=== PATIENT | female | born 1980 | race Caucasian/White ===

== ENCOUNTER 2019-03-24 15:19 | Inpatient (IN) | payer OTHER ==
[~2019-03-24] VITALS: Ht 162.6 cm; Wt 52.2 kg
[~2019-03-24 15:19] MED LIST: CIPRO500 MG PO; CLEOCIN HCL300 MG PO; COL100 PO; ESOMEPRAZOLE PO; FLA500 PO; GOLYTELY1 PDR PO; LAC PO; LACTULOSE10 GM/152 PO; LEVAQUIN750 MG PO; MIRALAX17 GM/Dose PO; NOR10T PO; PAN PO; PULMOZYME2.5 MG/2.5 IH; SPORANOX100 MG PO; TOBI300 MG/5 M IH; ZITHROMAX250 MG PO; [UNRECOGNIZED DRUG - OTHER] PO
[2019-03-24 16:58] LABS: BASOPHIL % 1.3 % (0-2); PLATELET COUNT 365 x10^3mcL (130-400); RED CELL DISTRIBUTION WIDTH 15.1 % (11.5-14.5)
[2019-03-24 17:07] LABS: CALCIUM 9.6 mg/dL (8.5-10.1); CARBON DIOXIDE 23.9 mmol/L (21-32); CHLORIDE SERUM 98 mmol/L (98-107); CREATININE SERUM 0.9 mg/dL (0.6-1.0); GFR1 > 60 mL/min; GLUCOSE SERUM 103 mg/dL (74-106); POTASSIUM SERUM 3.5 mmol/L (3.5-5.1); SODIUM SERUM 131 mmol/L (136-145)
[2019-03-24 17:12] LABS: ALKALINE PHOSPHATASE 239 U/L (46-116); ALT/SGPT 33 U/L (14-59); AST/SGOT 20 U/L (15-37); BILIRUBIN TOTAL 0.38 mg/dL (0.20-1.00); LIPASE 14 IU/L (73-393)
[2019-03-24 17:14] LABS: ALBUMIN 3.1 g/dL (3.4-5.0)
[2019-03-24 18:40] LABS: MAGNESIUM 1.7 mg/dL (1.8-2.4); PHOSPHOROUS 3.3 mg/dL (2.5-4.9)
[2019-03-24 19:57] VITALS: BP 99/63
[2019-03-25 05:42] VITALS: BP 94/65
[2019-03-25 08:37] VITALS: Ht 162.6 cm; Wt 52.2 kg
[2019-03-25 09:33] LABS: BASOPHIL % 0.2 % (0-2); PLATELET COUNT 283 x10^3mcL (130-400)
[2019-03-25 09:48] VITALS: BP 100/52
[2019-03-25 10:04] LABS: RED CELL DISTRIBUTION WIDTH 15.5 % (11.5-14.5)
[2019-03-25 10:28] LABS: CALCIUM 8.6 mg/dL (8.5-10.1); CARBON DIOXIDE 21.9 mmol/L (21-32); CHLORIDE SERUM 105 mmol/L (98-107); CREATININE SERUM 0.9 mg/dL (0.6-1.0); GFR1 > 60 mL/min; GLUCOSE SERUM 304 mg/dL (74-106); POTASSIUM SERUM 4.3 mmol/L (3.5-5.1); SODIUM SERUM 138 mmol/L (136-145)
[2019-03-25 13:36] VITALS: BP 97/47
[2019-03-25 16:20] VITALS: BP 97/47
[2019-03-25] MEDS ORDERED: TOR15I IV (17:27)
[2019-03-25] MEDS ORDERED: XOP0.63 HHN ×2 (17:27)
[2019-03-25] MEDS ORDERED: BG FS (17:28)
[2019-03-25] MEDS ORDERED: LAC30L PO (17:28)
[2019-03-25] MEDS ORDERED: TYL325 PO (17:28)
[2019-03-25] MEDS ORDERED: MOR2I IV (17:28)
[2019-03-25] MEDS ORDERED: MUCINEX600 MG PO (17:29)
[2019-03-25] MEDS ORDERED: PAN PO (17:29)
[2019-03-25] MEDS ORDERED: MAG PO (17:29)
[2019-03-25] MEDS ORDERED: PROTONIX40 MG/Pac1 PO (17:30)
[2019-03-25] MEDS ORDERED: LAC PO (17:30)
[2019-03-25] MEDS ORDERED: ZOFI IV (17:30)
[2019-03-25] MEDS ORDERED: SOL40I IV (17:30)
[2019-03-25] MEDS ORDERED: THERA TABLET400 MCG PO (17:31)
[2019-03-25] MEDS ORDERED: ITRACONAZOLE PO (17:31)
[2019-03-25] MEDS ORDERED: HUMULIN R100 U/1 M1 SC (17:31)
[2019-03-25 18:19] VITALS: BP 110/61
[2019-03-25 22:35] VITALS: BP 101/63
[2019-03-26 05:22] LABS: UA SPECIFIC GRAVITY 1.025 (1.005-1.035)
[2019-03-26 05:23] LABS: microscopic required? YES
[2019-03-26 05:24] LABS: urine erythrocyte NEGATIVE (NEGATIVE)
[2019-03-26 05:30] VITALS: BP 107/70
[2019-03-26 05:36] LABS: AMPHETAMINE QUAL UR NONE DETECTED (See below)
[2019-03-26 06:52] LABS: PLATELET COUNT 324 x10^3mcL (130-400)
[2019-03-26 07:03] LABS: CARBON DIOXIDE 24.8 mmol/L (21-32); CHLORIDE SERUM 105 mmol/L (98-107); GFR1 > 60 mL/min; GLUCOSE SERUM 295 mg/dL (74-106); MAGNESIUM 2.3 mg/dL (1.8-2.4); PHOSPHOROUS 3.5 mg/dL (2.5-4.9); POTASSIUM SERUM 5.1 mmol/L (3.5-5.1); SODIUM SERUM 137 mmol/L (136-145)
[2019-03-26 07:42] LABS: RED CELL DISTRIBUTION WIDTH 15.9 % (11.5-14.5)
[2019-03-26 08:30] VITALS: BP 101/45
[2019-03-26 09:28] LABS: BAND NEUTROPHIL 10 % (0-10); BASOPHIL 0 % (0-2); MONOCYTE 2 % (0-7); SEGMENTED NEUTROPHILS 81 % (37-75)
[2019-03-26 09:29] LABS: PLATELET MORPHOLOGY PLATELETS NORMAL; rbc morphology (normal/abnorm) NORMAL (NORMAL)
[2019-03-26 12:24] VITALS: BP 107/68
[2019-03-26 16:14] VITALS: BP 99/61
[2019-03-26 21:17] VITALS: BP 119/64
[2019-03-27 05:05] VITALS: BP 133/73
[2019-03-27 06:36] LABS: PLATELET COUNT 308 x10^3mcL (130-400)
[2019-03-27 06:37] LABS: BASOPHIL % 0 % (0-2); RED CELL DISTRIBUTION WIDTH 15.4 % (11.5-14.5)
[2019-03-27 07:02] LABS: CALCIUM 8.7 mg/dL (8.5-10.1); CHLORIDE SERUM 101 mmol/L (98-107); GFR1 > 60 mL/min; GLUCOSE SERUM 357 mg/dL (74-106); PHOSPHOROUS 3.7 mg/dL (2.5-4.9); POTASSIUM SERUM 4.2 mmol/L (3.5-5.1); SODIUM SERUM 137 mmol/L (136-145)
[2019-03-27 08:07] VITALS: BP 143/84
[2019-03-27 12:36] VITALS: BP 123/82
[2019-03-27 15:47] VITALS: BP 128/86
[2019-03-27 20:59] VITALS: BP 124/79
[2019-03-28 05:53] VITALS: BP 130/85
[2019-03-28 06:09] LABS: PLATELET COUNT 340 x10^3mcL (130-400)
[2019-03-28 06:34] LABS: RED CELL DISTRIBUTION WIDTH 15.5 % (11.5-14.5)
[2019-03-28 06:39] LABS: CALCIUM 8.9 mg/dL (8.5-10.1); CARBON DIOXIDE 28.1 mmol/L (21-32); CREATININE SERUM 1.1 mg/dL (0.6-1.0); MAGNESIUM 1.8 mg/dL (1.8-2.4); POTASSIUM SERUM 4.8 mmol/L (3.5-5.1)
[2019-03-28 07:53] VITALS: BP 148/89
[2019-03-28 08:44] LABS: BAND NEUTROPHIL 4 % (0-10); MONOCYTE 3 % (0-7); PLATELET MORPHOLOGY PLATELETS NORMAL; SEGMENTED NEUTROPHILS 82 % (37-75); rbc morphology (normal/abnorm) NORMAL (NORMAL)
[2019-03-28 13:11] VITALS: BP 121/85
[2019-03-28 15:54] VITALS: BP 121/85
[2019-03-28 16:00] VITALS: BP 141/86
[2019-03-28 21:39] VITALS: BP 125/80
[2019-03-29 05:39] VITALS: BP 125/71
[2019-03-29 06:46] LABS: PLATELET COUNT 360 x10^3mcL (130-400)
[2019-03-29 06:48] LABS: RED CELL DISTRIBUTION WIDTH 15.6 % (11.5-14.5)
[2019-03-29 07:04] LABS: CALCIUM 8.6 mg/dL (8.5-10.1); CARBON DIOXIDE 28.4 mmol/L (21-32); CREATININE SERUM 1.1 mg/dL (0.6-1.0); MAGNESIUM 1.7 mg/dL (1.8-2.4); PHOSPHOROUS 3.6 mg/dL (2.5-4.9); POTASSIUM SERUM 4.5 mmol/L (3.5-5.1)
[2019-03-29 09:29] VITALS: BP 125/85
[2019-03-29 10:39] LABS: BAND NEUTROPHIL 6 % (0-10); BASOPHIL 0 % (0-2); MONOCYTE 3 % (0-7); SEGMENTED NEUTROPHILS 87 % (37-75)
[2019-03-29 10:41] LABS: rbc morphology (normal/abnorm) ABNORMAL (NORMAL)
[2019-03-29 10:42] LABS: PLATELET MORPHOLOGY LARGE PLATELET SEEN; tear drop cell (dacryocyte) 1+
[2019-03-29 12:43] VITALS: BP 118/77
[2019-03-29] MEDS ORDERED: ZYVOX600 MG PO (13:37)
[2019-03-29] MEDS ORDERED: LAC PO (14:38)
[2019-03-29] MEDS ORDERED: BG FS (14:38)
[2019-03-29] MEDS ORDERED: HUMULIN R100 U/1 M1 SC (14:38)
[2019-03-29] MEDS ORDERED: BACO TOP (14:38)
[2019-03-29 18:06] VITALS: BP 139/91
[2019-03-29 18:09] VITALS: BP 139/91
== END 2019-03-29 18:58 | disposition home or self-care (01) | DRG 177 ==
LOC: ED 15:19 → DU 17:46
PROVIDERS: Emergency Medicine; ADMIT Internal Medicine
DX: J15.212 Pneumonia due to Methicillin resistant Staphylococcus aureus (principal); A41.9 Sepsis, unspecified organism; M33.20 Polymyositis, organ involvement unspecified; E84.9 Cystic fibrosis, unspecified; Z68.1 Body mass index [BMI] 19.9 or less, adult; E44.0 Moderate protein-calorie malnutrition; E83.42 Hypomagnesemia; R74.0 Nonspecific elevation of levels of transaminase and lactic acid dehydrogenase [LDH]; E11.9 Type 2 diabetes mellitus without complications; F11.10 Opioid abuse, uncomplicated; Z22.322 Carrier or suspected carrier of Methicillin resistant Staphylococcus aureus
CPT/HCPCS: 82962; 83880; 87804; 94150; J1200; J1642; J1885; J2020; J2270; J2405; J2543; J2920; J2930; J3010; J3490; J7030; J7040; J7050; J7620; Q0092

== ENCOUNTER 2019-10-17 05:25 | Inpatient (IN) | payer OTHER ==
[~2019-10-17] VITALS: Ht 162.6 cm; Wt 52.2 kg
[~2019-10-17 05:25] MED LIST changes: +BACO TOP; +BG FS; +HUMULIN R100 U/1 M1 SC; +ITRACONAZOLE PO; +LAC30L PO; +MAG PO; +MOR2I IV; +MUCINEX600 MG PO; +PROTONIX40 MG/Pac1 PO; +SOL40I IV; +THERA TABLET400 MCG PO; +TOR15I IV; +TYL325 PO; +XOP0.63 HHN; +ZOFI IV; +ZYVOX600 MG PO
--- NOTE | 2019-10-17 05:30 | NUR ---
EKG IN PROGRESS IN TRIAGE
--- NOTE | 2019-10-17 05:41 | NUR ---
PT SENT TO THE LOBBY TO WAIT, NO DISTRESS NOTED OR SOB A THIS TIME. RESP E/U.
--- NOTE | 2019-10-17 08:00 | NUR ---
AGENCY DOCUMENTATION DONE BY Staff Name/Title - : NOBLE JACQUES JR/JUSTA [employer] User ID - : [id number] Agency Name - : [employer] Time Documented - From - : [id number] To - : 1929
[2019-10-17 08:08] LABS: BASOPHIL % 0.5 % (0-2); PLATELET COUNT 308 x10^3mcL (130-400)
[2019-10-17 08:09] LABS: RED CELL DISTRIBUTION WIDTH 15.4 % (11.5-14.5)
[2019-10-17 08:21] LABS: CALCIUM 8.5 mg/dL (8.5-10.1); CARBON DIOXIDE 26.9 mmol/L (21-32); CHLORIDE SERUM 105 mmol/L (98-107); CREATININE SERUM 0.8 mg/dL (0.6-1.0); GFR1 > 60 mL/min; GLUCOSE SERUM 86 mg/dL (74-106); POTASSIUM SERUM 4.2 mmol/L (3.5-5.1); SODIUM SERUM 140 mmol/L (136-145)
[2019-10-17 08:26] LABS: ALBUMIN 2.8 g/dL (3.4-5.0); ALKALINE PHOSPHATASE 261 U/L (46-116); ALT/SGPT 40 U/L (14-59); AST/SGOT 41 U/L (15-37); BILIRUBIN TOTAL 0.2 mg/dL (0.20-1.00)
--- NOTE | 2019-10-17 08:26 | NUR ---
ASSUMED PATIENT CARE, NURSING ASSESSMENT COMPLETED. SEEN AND EVALUATED BY JOSESITO BEAR COMPLETED.
[2019-10-17 09:22] LABS: CHOLESTEROL/HDL RATIO 3.8; MAGNESIUM 1.9 mg/dL (1.8-2.4); PHOSPHOROUS 3.2 mg/dL (2.5-4.9)
[2019-10-17 09:41] LABS: T3 TOTAL 0.94 ng/mL
[2019-10-17 09:45] LABS: FREE T4 1.03 ng/dL (0.76-1.46); FREE THYROXINE INDEX 2.5 ug/dL (1.4-4.5); T4(THYROXINE) 7.7 ug/dL (4.7-13.3)
--- NOTE | 2019-10-17 09:45 | NUR ---
DISPO AND MEDICAL DECISION MAKING INPATIENT ADMISSION FOR FURTHER MANAGEMENT. PATIENT CARE REPORT ENDORSED TO STEPHEN, PATIENT UPDATED ACCORDINGLY, VS WNL, NO DISTRESS.
--- NOTE | 2019-10-17 10:00 | NUR ---
RECIEVED PT FROM ER [facility]IA [employer]. PT A/O X4 WITH NO C/O DIZZINESS. ADMITTING DIAGNOSIS PNA. LUNGS HAVE WHEEZING BILATERALLY, NO SOB NOTED. 2 LPM O2 VIA NC. TELE# 35 CONNECTED TO PT , DENIES CP OR PRESSURE. NSR AT THIS TIME. PULSES PLPABLE AND NO EDEMA NOTED. BOWEL SOUNDS ACTIVEX4, NO DISTENTION NOTED. PT AMBULATORY WITH ASSISTANCE. SKIN CDI. LEFT CHEST WALL PORTACATH CDI AND PATENT. SAFETY PRECAUTIONS IN PLACE, CALL LIGHT WITHIN REACH, WILL MONITOR.
[2019-10-17 10:06] VITALS: BP 101/61
--- NOTE | 2019-10-17 11:48 | NUR ---
MORPHINE GIVEN PER EMAR FOR C/O PAIN, WILL REASSESS.
[2019-10-17 11:57] VITALS: Ht 162.6 cm; Wt 52.2 kg
[2019-10-17 13:30] VITALS: BP 101/70
[2019-10-17 13:55] VITALS: BP 101/70
--- NOTE | 2019-10-17 15:03 | NUR ---
MORPHINE GIVEN PER EMAR FOR C/O 04/19 LEAVITT AND CP, WILL REASSESS.
[2019-10-17 16:49] VITALS: BP 106/67
--- NOTE | 2019-10-17 18:36 | NUR ---
PT STABLE WITH NO C/O DISTRESS OR PAIN. TOLERATED ALL CARES WELL. VS WNL. A/OX4. TELE#35 CONNECTED TO PT, DENIES CP OR PRESSURE. PT ON 2 LPM O2 NC WITH NON-PRODUCTIVE COUGH. NS RUNNING AT 100ML/HR IN LEFT CHEST WALL PORTACATH, CDI AND PATENT. STRICT INSTRUCTIONS FROM PHARMACY TO GIVE BENADRYL 30 MIN BEFORE ZOSYN D/T ALLERGIES. CAHARGE AWARE AND WILL ENDORSE TO ONCOMING NURSE. SAFETY PRECAUTIONS IN PLACE, CALL LIGHT WITHIN REACH, WILL ENDORSSE ALL CARE, TX, AND ISTRUCTIONS TO NIGHT NURSE.
--- NOTE | 2019-10-17 20:00 | NUR ---
PT A/A/O X4. DENIES DIZZINESS AND HEADACHE. BREATH SOUNDS CLEAR. BREATHING EVEN AND UNLABORED ON 2L NC. DRY/NON PRODUCTIVE COUGH NOTED. NO C/O CHEST PAIN AND PRESSURE THUS FAR. BOWEL SOUNDS ACTIVE. NO C/O N/V AND ABD PAIN. PT WITH VINCENT CATH NOTED ON THE LEFT SIDE OF THE CHEST. MADE PT COMFORTABLE. PLACED CALL LIGHT WITH IN REACH. WILL CONTINUE TO MONITOR.
--- NOTE | 2019-10-17 20:22 | NUR ---
PT C/O CHEST PAIN. GAVE PT MORPHINE IVP. PT TOLERATED IT WELL. WILL CONTINUE TO MONITOR.
--- NOTE | 2019-10-17 20:39 | NUR ---
PT WITH TEMP OF 103.3. GAVE PT TYLENOL PO. PT TOLERATED IT WELL. COOLING MEASURES IMPLEMENTED. WILL CONTINUE TO MONITOR.
[2019-10-17 21:15] VITALS: BP 107/53
--- NOTE | 2019-10-17 21:37 | NUR ---
PATIENTS TEMP 102.4, AFTER TYLENOL AND COOLING MEASURES. DR. LOPEZ NOTIFIED. COOLING MEASURES CONTINUED TO BE IMPLEMENTED. WILL CONTINUE TO MONITOR.
--- NOTE | 2019-10-17 23:51 | NUR ---
PT C/O PAIN. GAVE PT MORPHINE IVP. PT TOLERATED IT WELL. WILL CONTIUE TO MONITOR.
[2019-10-18] VITALS (7 sets, daily range): BP systolic 99–110; BP diastolic 53–69
--- NOTE | 2019-10-18 00:31 | NUR ---
PT TEMP 97.7 ORALLY. WILL CONTINUE TO MONITOR.
--- NOTE | 2019-10-18 00:58 | NUR ---
PT RESTING WITH EYES CLOSED. NO DISTRESS AND DISCOMFORT NOTED. WILL CONTINUE TO MONITOR.
--- NOTE | 2019-10-18 04:56 | NUR ---
PT C/O PAIN. GAVE PT MORPHINE IVP. PT TOLERATED IT WELL. WILL CONTINUE TO MONITOR.
--- NOTE | 2019-10-18 07:30 | NUR ---
PT ENDORSE TO ME THIS MORNING, LAYING IN BED RESTING, AA/O X4, BREATHING EVEN AND UNLABORED ON RA, NO ACUTE RESP DISTRESS OR SOB NOTED. TELE 35 NSR NOTED, HR 76, DENIES ANY CP OR PRESSURE. VOIDS FREELY. AMB. IV TO THE L VINCENT CATH INTACT AND PATENT/ INFUSING AT 100ML/HR, NO REDNESS OR SWELLING NOTED. CALL LIGHT IN REACH, BED IN LOW POSITION. WILL CONTINUE TO MONITOR.
[2019-10-18 07:53] LABS: PLATELET COUNT 227 x10^3mcL (130-400)
[2019-10-18 07:59] LABS: BASOPHIL % 0 % (0-2); RED CELL DISTRIBUTION WIDTH 15.4 % (11.5-14.5)
[2019-10-18 08:18] LABS: CALCIUM 7.9 mg/dL (8.5-10.1); CARBON DIOXIDE 22.1 mmol/L (21-32); CHLORIDE SERUM 107 mmol/L (98-107); GFR1 > 60 mL/min; GLUCOSE SERUM 234 mg/dL (74-106); POTASSIUM SERUM 4.3 mmol/L (3.5-5.1); SODIUM SERUM 139 mmol/L (136-145)
[2019-10-18 09:15] LABS: UA SPECIFIC GRAVITY <=1.005 (1.005-1.035); microscopic required? YES; urine erythrocyte TRACE (NEGATIVE)
--- NOTE | 2019-10-18 09:51 | NUR ---
PT C/O OF BACK PAIN 05/19, BP TOO LOW FOR NORCO OR MORPHINE IV . WILL MEDICATE PER EMAR . WILL CONTINUE TO MONITOR.
--- NOTE | 2019-10-18 10:00 | NUR ---
CALL PHARMACY, PER CEE CULLEN TO HANG ZOSYN OVER ONE HR. WILL CONTINUE TO MONITOR.
--- NOTE | 2019-10-18 10:45 | NUR ---
REQUESTED TO PUT ORDER IN OF 3% HYPERTONIC SALINE FOR PATIENT TO HAVE WITH EACH Q6 HHN TREATMENT TO INDUCE COUGH AND MOBILIZE SECRETIONS. SPOKE WITH AND ADVISED THAT I DO NOT HAVE ACCESS TO ORDER THE SALINE. STATED TO ORDER THE SALINE UNDER 'REQUEST FOR SERVICE' AND NOTATE THE FILE SO PHARMACY WILL PUT ORDER THROUGH.
--- NOTE | 2019-10-18 11:09 | NUR ---
PT C/O OF BACK PAIN 05/19, MEDICATED PER EMAR.
--- NOTE | 2019-10-18 14:25 | NUR ---
PT TOLERATED 100 % OF LUNCH. DENIES ANY N/V AT THIS TIME. WILL CONTINUE TO MONITOR.
--- NOTE | 2019-10-18 14:56 | NUR ---
PT C/O OF BILAT BACK PAIN 04/19, MEDICATED PER EMAR.
--- NOTE | 2019-10-18 18:16 | NUR ---
NO ACUTE CHANGES AT THIS TIME, NO ACUTE RESP DISTRESS OR SOB NOTED. L CHEST PORT CATH INTACT AND PATENT INFUSING NS AT 100ML/HR, NO REDNESS OR SWELLING. WILL ENDORSE TO INCOMING RN.
--- NOTE | 2019-10-18 18:43 | NUR ---
PT C/O BILAT BACK PAIN, MEDICATED PER EMAR. ALSO CALLED NUCLEAR MEDICINE SPECIALIST DUC FOR ONE TIME ORDER OF BENADRYL 25MG IVP. ORDERS FOLLOWED THROUGH. WILL CONTINUE TO MONITOR. WILL ENDORSE TO INCOMING RN.
--- NOTE | 2019-10-18 20:34 | NUR ---
PT CURRENTLY RESTING IN BED, NO ACUTE DISTRESS. A/O X4. TELE #35 SHOWING SINUS RHYTHM, DENIES CHEST PAIN. PULSES PALPABLE IN ALL EXTREMITIES, NO EDEMA NOTED. LUNG SOUNDS CTA BILATERALLY, DENIES SOB. NONPRODUCTIVE COUGH NOTED, C/O CHEST PAIN WHILE COUGHING. BOWEL SOUNDS ACTIVE, LAST BM 10/18/19. VOIDING WELL. AMBULATORY. SKIN INTACT. C/O BACK PAIN AND MIGRAINE 7/10 PAIN, MEDICATED PER EMAR. LEFT CHEST PORTACATH PATENT AND INTACT. BED IN LOWEST POSITION, SIDE RAILS UP X2, CALL LIGHT WITHIN REACH. WILL CONTINUE TO MONITOR.
--- NOTE | 2019-10-19 01:26 | NUR ---
PT CURRENTLY RESTING IN BED, NO ACUTE DISTRESS. WILL CONTINUE TO MONITOR.
[2019-10-19 05:51] VITALS: BP 116/77
--- NOTE | 2019-10-19 06:30 | NUR ---
PT SLEPT PERIODICALLY THROUGHOUT NIGHT, NO ACUTE DISTRESS. ALL NEEDS MET AND ATTENDED TO. NO SIGNIFICANT CHANGES. IV PATENT AND INTACT. MEDICATED PAIN PER EMAR. BED IN LOWEST POSITION, SIDE RAILS UP X2, CALL LIGHT WITHIN REACH. WILL ENDORSE CARE TO ONCOMING NURSE.
[2019-10-19 07:12] LABS: PLATELET COUNT 263 x10^3mcL (130-400)
[2019-10-19 07:14] LABS: BASOPHIL % 0 % (0-2); RED CELL DISTRIBUTION WIDTH 15.5 % (11.5-14.5)
[2019-10-19 07:25] LABS: CALCIUM 8.1 mg/dL (8.5-10.1); CARBON DIOXIDE 25.8 mmol/L (21-32); CHLORIDE SERUM 107 mmol/L (98-107); CREATININE SERUM 0.8 mg/dL (0.6-1.0); GFR1 > 60 mL/min; GLUCOSE SERUM 329 mg/dL (74-106); POTASSIUM SERUM 4.7 mmol/L (3.5-5.1); SODIUM SERUM 139 mmol/L (136-145)
--- NOTE | 2019-10-19 07:30 | NUR ---
PATIENT'S PLAN OF CARE WAS DISCUSSED AND REVIEWED WITH MORTGAGE PROCESSING CLERK:SN GIRON. WILL CONTINUE TO REVIEW WORK COMPLETED BY .
--- NOTE | 2019-10-19 07:42 | NUR ---
PT RECIEVED FROM NIGHT NURSE SITTING UPRIGHT IN BED. AO X4. TELE # 35 WITH NORMAL SINUS RHYTHM. DENIES ANY PAIN OR CHEST PAIN AT THIS TIME. IN NO RESPIRATORY DISTRESS. IV TO LEFT CHEST PORTACATH INTACT AND PATENT RUNNING NS AT 100 MLS/HR. CALL LIGHT WITHIN REACH. WILL CONTINUE TO MONITOR.
[2019-10-19 08:44] VITALS: BP 119/69
--- NOTE | 2019-10-19 09:58 | NUR ---
PER DOOR CLAMPER MUTUC OK TO CHANGE TELE MONITOR HR TO ALARM LESS THAN 45BPM. PT IS ASYMPTOMATIC. PT IS LAYING IN BED RESTING, DENIES ANY DISCOMFORT AT THIS TIME. WILL CONTINUE TO MONITOR.
--- NOTE | 2019-10-19 11:58 | NUR ---
PT COMPLAINING OF 7/10 BILATERAL BACK PAIN. MEDICATED PER EMAR
--- NOTE | 2019-10-19 14:06 | NUR ---
PT C/O BACK PAIN 07/20, ASKING FOR MORPHINE / ADVISE PT NOT SAFE TO ADMINISTER IVP MORPHINE DUE TO LOW HR. FOOD BAGGING MACHINE OPERATOR MUTUC MADE AWARE. NORCO 7.5 GIVEN CURRENT BP 123/86 MAP 107, HR RANGING FROM 48-52, 98 % ON RA, RESP 18. WILL CONTINUE TO MONITOR.
[2019-10-19 14:08] VITALS: BP 123/86
--- NOTE | 2019-10-19 15:19 | NUR ---
CALLED MARINE FUEL DOCK ATTENDANT MUTUC MADE AWARE OF LOW HR RANGING 39-50 PT DENIES ANY DIZZINESS OR SOB OR DISCOMFORT, VS STABLE. CALL LIGHT IN REACH. BED IN LOW POSITION BY NURSING STATION WILL CONTINUE TO MONITOR.
--- NOTE | 2019-10-19 17:05 | NUR ---
GAVE SCHEDULE BENADRYL 1630 CURRENT HR 71, PT IS ASYMPTOMATIC, DR. JOHNSTON AWARE. WILL CONTINUE TO MONITOR.
[2019-10-19 17:26] VITALS: BP 109/72
--- NOTE | 2019-10-19 18:44 | NUR ---
PT C/O BILAT BACK PAIN 07/20, CURRENT HR 69 VS: STABLE,MEDICATED PER EMAR. BLOOD BANK TECHNOLOGIST MUTUC AWARE. PT DENIES ANY CP OR PRESSURE/ DIZZINESS. WILL CONTINUE TO MONITOR.
--- NOTE | 2019-10-19 19:06 | NUR ---
PT SITTING UPRIGHT IN BED ON HER PHONE IN NO ACUTE DISTRESS. NO COMPLAINT OF PAIN AT THIS TIME. NO CHEST PAIN AT THIS TIME. BREATHING EVEN AND UNLABORED. CALL LIGHT WITHIN REACH. WILL ENDORSE TO INVOICE CONTROL CLERK NURSE.
--- NOTE | 2019-10-19 19:29 | NUR ---
I HAVE REVIEWED THE DATA COLLECTION BY LEXIS (NAME):BREE REDMOND ENTERED ON (DATE/TIME):10/19/19 I CONCUR WITH THE DATA AND ANY EXCEPTIONS OR COMMENTS ARE LISTED BELOW:
--- NOTE | 2019-10-19 19:31 | NUR ---
RECEIVED PT FROM PREVIOUS SHIFT. PT A/OX4. SITTING UP IN BED IN NO ACUTE DISTRESS. RR EVEN AND UNLABORED. HR 52. NS INFUSING WELL TO L CHEST PORTACATH. CALL LIGHT WITHIN REACH, BED IN LOW POSITION. WILL CONTINUE TO MONITOR.
[2019-10-19 20:52] VITALS: BP 116/61
--- NOTE | 2019-10-19 22:13 | NUR ---
PT C/O 08/19 PAIN. HR 69 AT THIS TIME. MORPHINE GIVEN IVP PER EMAR.
--- NOTE | 2019-10-20 00:22 | NUR ---
BENADRYL GIVEN IVP PER EMAR. HR 63.
--- NOTE | 2019-10-20 03:02 | NUR ---
PT RESTING IN NO ACUTE DISTRESS. RR EVEN AND UNLABORED. CALL LIGHT WITHIN REACH, BED IN LOW POSITION. WILL CONTINUE TO MONITOR.
[2019-10-20 06:01] VITALS: BP 116/72
--- NOTE | 2019-10-20 07:38 | NUR ---
RECIEVED REPORT FROM [facility] NURSE LIGIA. PATIENT IS AWAKE, ALERT, AND ORIENTED. PATIENT IS ON ROOM AIR. RESPIRATIONS EVEN AND UNLABORED. NO REPORT OF SOB. NS INFUSING A T100/HOUR. PATIENT HAS L. CHEST PORTOCATH INTACT-OKAY TO USE. BED IN THE LOW POSITION. CALL LIGHT WITHIN REACH.
[2019-10-20 08:14] VITALS: BP 112/78
[2019-10-20] MEDS ORDERED: ZYVOX600 MG PO (10:17)
[2019-10-20] MEDS ORDERED: BENADRYL ALLERG25 M1 PO (10:18)
[2019-10-20 12:09] VITALS: BP 128/65
--- NOTE | 2019-10-20 13:04 | NUR ---
PATIENT REPORTS EXTREME ITCHINESS. OBSERVED PATIENT SCRATCHING HER HEAD AND ABDOMEN. I CALLED NURSE PRACTIONER DAO TWO TIMES, BUT RECIEVED BUSY SIGNAL. UNABLE TO REACH STAFFING RN PROSIDING OVER CARE. I GAVE PATIENT SCHEDULED 1629 BENADRYL.
[2019-10-20 13:26] VITALS: BP 128/65
--- NOTE | 2019-10-20 14:04 | NUR ---
1. Recommend changing to CCHO diet as patient has high blood sugar and A1C. If PO declines with CCHO diet, continue regular diet.
--- NOTE | 2019-10-20 14:04 | NUR ---
Initial Nutrition Assessment: 252T/B CARLOS GARRETT HR Dx: PNA PMHx: Hx Asthma, Hx Arrythmia, cystic fibrosis, svt, gallstones, polymyositis PSHx: none Labs: BG 329H, ALB 2.8L, AST 41H, A1C 6.9H, HGB 10.7L Meds: cephulac, Colace, D 50%, Humulin, lactinex, morphine, norco, NS, Zofran, zosyn Diet: regular PO intake since admission: (10/20) breakfast 25%, (10/19) lunch 80%, breakfast 50%, (10/18) 40%, breakfast 100% Ht: 162.56 cm (64") Wt: 52 kg (114#) BMI: 19.7 kg/m2 Bed scale: 114# IBW: 120# (55 kg) %IBW: 95 UBW: 114# Age: 39/F Food Allergies: NKFA Skin: intact Tong: 20 Edema: none GI: Last BM: 10/18 Trigger: N/V/D >3d, poor PO >3d Per H&P, Pt is a 39-year-old female with history of cystic fibrosis presented to the emergency room complaining of chest pain. RD Note (10/20): Patient appeared lethargic but responded to all the questions asked by RD. Patient said that she ate very little breakfast as she does not have an appetite and feels nauseous. RD asked her if she wanted to have some yogurt and fruit was lunch along with her lunch tray and patient agreed as she liked yogurt. Patient refuses to drink ONS Ensure. Problem with: N/V/D/C: nausea Problems with: Chewing: Swallowing: none Current appetite: poor Recent wt change: none %wt change: n/a Vitamin/Supplement use: A, D, E, K Special diet at home: Regular Physical activity: sedentary Nutrition education given: PO was encouraged Food-drug interactions: none Education given: n/a Estimated Nutritional Needs Based on current body weight (52 kg) Energy: 3751-9070 kcal/day (30-35 kcal/kg for PNA) Protein: 62-73 g/day (1.2-1.4 g/kg for PNA) Fluid: 3005-2756 mL/day (1 mL/kcal) Nutrition Diagnosis: 1. Inadequate oral intake related to poor appetite as evidenced by documented PO 25% Intervention 1. Recommend changing to CCHO diet as patient has high blood sugar and A1C. If PO declines with CCHO diet, continue regular diet. Monitor/Evaluate Goal: PO intake at least 75% of estimated needs Monitor: PO intake, Labs, GI function F/U in 3-5 days as moderate risk 10/23-
--- NOTE | 2019-10-20 16:48 | NUR ---
DISCHARGE INSTRUCTIONS AND EDUCATION GIVEN TO PATIENT. TELEMETRY REMOVED AND RETURNED TO TELE STATION. PATIENT VERBALIZED UNDERSTANDING OF DISCHARGE INSTRUCTIONS AND EDUCATION. PORT-A-CATH FLUSHED WITH HEPARIN AND REMOVED INTACT. PATIENT ACCOMPANIED TO THE LOBBY BY [facility].
[2019-10-23] MEDS ORDERED: CIPRO500 MG PO (10:01)
== END 2019-10-20 16:19 | disposition home or self-care (01) | DRG 871 ==
LOC: ED 05:25 → DU 08:50
PROVIDERS: Emergency Medicine; ADMIT Internal Medicine
DX: A41.9 Sepsis, unspecified organism (principal); J18.9 Pneumonia, unspecified organism; E44.0 Moderate protein-calorie malnutrition; M94.0 Chondrocostal junction syndrome [Tietze]; R74.0 Nonspecific elevation of levels of transaminase and lactic acid dehydrogenase [LDH]; F41.9 Anxiety disorder, unspecified
CPT/HCPCS: 82962; 84439; G0378; J1200; J1642; J2020; J2270; J2543; J2920; J7030; J7512; J7613; J7644; Q0092

== ENCOUNTER 2019-10-21 15:54 | Emergency (ER) | payer OTHER ==
[~2019-10-21] VITALS: Ht 162.6 cm; Wt 57.6 kg
[~2019-10-21 15:54] MED LIST changes: +BENADRYL ALLERG25 M1 PO
[2019-10-21 15:56] VITALS: BP 117/61; Ht 162.6 cm; Wt 57.6 kg
[2019-10-21 17:30] LABS: CALCIUM 8.8 mg/dL (8.5-10.1); CARBON DIOXIDE 30.1 mmol/L (21-32); CHLORIDE SERUM 104 mmol/L (98-107); CREATININE SERUM 0.9 mg/dL (0.6-1.0); GFR1 > 60 mL/min; GLUCOSE SERUM 104 mg/dL (74-106); POTASSIUM SERUM 3.5 mmol/L (3.5-5.1); SODIUM SERUM 140 mmol/L (136-145)
[2019-10-21 17:37] LABS: ALKALINE PHOSPHATASE 217 U/L (46-116); ALT/SGPT 94 U/L (14-59); AST/SGOT 36 U/L (15-37); BILIRUBIN TOTAL 0.19 mg/dL (0.20-1.00); TOTAL PROTEIN, SERUM 7.8 g/dL (6.4-8.2)
[2019-10-21 17:40] LABS: ALBUMIN 2.9 g/dL (3.4-5.0)
[2019-10-23] MEDS ORDERED: CIPRO500 MG PO (10:01)
== END 2019-10-21 18:50 | disposition home or self-care (01) ==
LOC: ED 15:54
PROVIDERS: Emergency Medicine
DX: R60.0 Localized edema (principal); J45.909 Unspecified asthma, uncomplicated; Z98.890 Other specified postprocedural states; Z90.49 Acquired absence of other specified parts of digestive tract; Z87.19 Personal history of other diseases of the digestive system; Z88.2 Allergy status to sulfonamides; Z88.1 Allergy status to other antibiotic agents; Z88.8 Allergy status to other drugs, medicaments and biological substances
CPT/HCPCS: 36415; Q0092